=== PATIENT | female | born 1995 | race Caucasian/White ===

== ENCOUNTER 2025-02-08 16:20 | Emergency (ER) | payer BC, SELFPAY ==
[2025-02-08 16:22] VITALS: BP 118/80; PULSE 91; RESP 16; TEMP 36.8; O2SAT 98; BMI 32.5
[2025-02-08 16:42] VITALS: PULSE 90; RESP 18; O2SAT 98
--- NOTE | 2025-02-08 17:04 | XR_ITS ---
Examination: PA lateral chest 2 views TECHNIQUE: Upright PA and lateral chest 2 views Date and time: February 08, 2025 1718 hours INDICATION: Chest pain and shortness of the feeding tube reaches ago. FINDINGS: Subsegmental atelectasis right base No will lobar pneumonia No pulmonary edema The osseous structures are intact IMPRESSION: Subsegmental atelectasis right base No pneumonia or pulmonary edema
--- NOTE | 2025-02-08 17:04 | EKG_ITS ---
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
--- NOTE | 2025-02-08 17:04 | PD.EDRME ---
Rapid Medical Screening Exam RME Arrival date/time: 02/08/25 16:20 29-year-old female presents to the emergency department today for complaints of chest pain and upper abdominal pain while eating today 2 hours ago Vital signs: Vital Signs Temperature 98.3 F 02/08/25 16:22 Pulse Rate 91 02/08/25 16:22 Respiratory Rate 16 02/08/25 16:22 Blood Pressure 118/80 02/08/25 16:22 Pulse Oximetry (%) 98 02/08/25 16:22 Oxygen Delivery Method Room Air 02/08/25 16:22
[2025-02-08 17:43] LABS: Basophils # (Auto) 0.1 Thou/mm3 (0.0-0.2); Basophils % (Auto) 1 % (0-2.5); Eosinophils # (Auto) 0.2 Thou/mm3 (0.0-0.5); Eosinophils % (Auto) 1 % (0-10); Hematocrit 37.7 % (36.0-46.0); Hemoglobin 12.9 g/dL (12.0-16.0); Immature Granulocytes % (Auto) 0 % (0-0); Immature Granulocytes Auto 0.03 Thou/mm3 (0.00-0.00); Lymphocytes # (Auto) 1.5 Thou/mm3 (1.0-4.8); Lymphocytes % (Auto) 13 % (10-50); Mean Corpuscular HGB Conc 34.2 g/dl (31.0-37.0); Mean Corpuscular Hemoglobin 27.5 pg (25.0-35.0); Mean Corpuscular Volume 80 fL (80-100); Monocytes # (Auto) 0.7 Thou/mm3 (0.0-0.8); Monocytes % (Auto) 6 % (0-12); Neutrophils # (Auto) 9.5 Thou/mm3 (1.8-7.7); Neutrophils % (Auto) 79 % (37-80); Nucleated Red Blood Cell % 0 /100 WBC (0); Platelet Count 379 Thou/mm3 (140-440); RDW Standard Deviation 39.6 fL (36.4-46.3); Red Blood Count 4.69 Miln/mm3 (4.00-5.20)
[2025-02-08 17:47] LABS: Collection Type, Urine Clean Catch
[2025-02-08 18:03] LABS: HCG Qualitative,Urine Negative
[2025-02-08 18:08] LABS: Bilirubin,Urine Negative (Negative); Blood,Urine Negative (Negative); Clarity,Urine Clear (Clear/Hazy); Color,Urine Yellow (Lt Yel-Yel); Culture Indicated,Urine Not Indicated; Glucose, Urine Negative (Negative); Ketones,Urine Negative (Negative); Leukocyte Esterase,Urine Negative (Negative); Nitrite,Urine Negative (Negative); Protein,Urine Trace (Neg - Trace); Specific Gravity,Urine 1.029 (1.001-1.035)
[2025-02-08 18:21] LABS: Alanine Aminotransferase 59 U/L (10-49); Albumin, Serum 4.8 gm/dL (3.5-5.0); Albumin/Globulin Ratio 1.7 (1.2-2.2); Alkaline Phosphatase 100 U/L (46-116); Anion Gap 6 (7-16); Aspartate Amino Transferase 88 U/L (0-34); BUN/Creatinine Ratio 10 Ratio (12-20); Bilirubin,Total 1.2 mg/dL (0.3-1.2); Blood Urea Nitrogen 8 mg/dL (9-23); Calcium 9.4 mg/dL (8.3-10.6); Calcium (Corrected) 9.4 mg/dL (8.5-10.1); Chloride 104 mMol/L (98-107); Creatinine (Component) 0.8 mg/dL (0.6-1.3); Estimated Creatinine Clearance 110.2 mL/min (>60); Globulin 2.8 gm/dL (2.3-3.5); Glucose 111 mg/dL (74-106); Lipase 39 U/L (12-53); Osmolality,Calculated 273 (275-295); Potassium 3.9 mMol/L (3.4-5.1); Sodium 137 mMol/L (136-145); Total Protein 7.6 gm/dL (5.7-8.2); Troponin I < 0.002 ng/mL (0.0-0.045); eGFR > 60 See Note
[2025-02-08 18:38] LABS: RBC,Urine 2 /hpf (0-3)
[2025-02-08 18:39] LABS: Squamous Epithelial Cell,Urine 10 /hpf (0-5); WBC,Urine 3 /hpf (0-5)
--- NOTE | 2025-02-08 20:12 | EDNOTE_ITS ---
ED General RME/HPI General Stated complaint: CHEST WALL PAIN Time Seen by Provider: 02/08/25 19:39 Arrival date/time: 02/08/25 16:20 RME / HPI RME / HPI narrative: 29-year-old female presents to the emergency department today for complaints of chest pain and upper abdominal pain while eating today 2 hours ago. Described as burning-like sensation, severity moderate. Patient's been taking a lot of Tylenol Motrin due to migraine headache. Has been having migraine headache every day for the last 1 year denies any cough denies any fever denies any shortness of breath denies any other complaints. Related Data Previous Rx's ?Medication ?Instructions ?Recorded sodium chloride 0.65 % nasal spray 2 spray intranasal QID #45 mL 02/06/23 aerosol (Saline Mist) pantoprazole 40 mg tablet,delayed 40 mg PO QDAY #30 ta bs 02/08/25 release (Protonix) rizatriptan 10 mg disintegrating 10 mg PO Q2H PRN migr roxane headache 02/08/25 tablet (Maxalt-S[employer]USTOMER RELATIONS REP) #30 tabs Allergies Allergy/AdvReac Type Severity Reaction Status Date / Time No Known Allergies Allergy Verified 02/08/25 16:46 Review of Systems Review of Systems Narrative Review of Systems: Review of system reviewed and within normal limits except mentioned in HPI ED Exam Narrative Physical exam: VITAL SIGNS: Reviewed. GENERAL APPEARANCE: Alert and interactive, follows commands, no acute distress, HEAD AND FACE: Non-traumatic. ENT: PERRL, pink conjunctivitis, eyelid no trauma, Mucous membrane moist. NECK: Supple, nontender, no nuchal rigidity. CHEST: No tenderness, no crepitus, no paradoxical movement, no retractions. LUNGS: Clear, well ventilated, symmetric, no rales, no wheezing, no ronchi, no stridor, good breath sounds bilaterally. HEART: Regular rate, regular rhythm, no murmur, no gallops. ABDOMEN: Soft, positive bowel sounds, nondistended, no guarding, nontender, no rebound, no masses, RECTAL: Deferred. GENITAL: Deferred. NEUROLOGICAL: Gross motor function intact sensory function intact, Appropriate for age. MUSCULOSKELETAL: low back nontender, full range of motion. EXTREMITIES: Nontender, full range of motion. SKIN: Color pink, dry, no rash, no lacerations, no abrasions, no contusions. LYMPHATICS: Deferred. Course Quality Measures none Orders Category Date Time Status EKG (ED ONLY) *Do not use* NOW Care 02/08/25 17:04 Completed EKG (ED Only) Stat Exams 02/08/25 17:04 Draft XR chest 2V Stat Exams 02/08/25 17:04 Completed CBC Stat Lab 02/08/25 17:26 Completed Comprehensive Metabolic Panel Stat Lab 02/08/25 17:26 Completed HCG Qualitative,Urine Stat Lab 02/08/25 17:42 Completed Lipase Stat Lab 02/08/25 17:26 Completed Troponin I Stat Lab 02/08/25 17:26 Completed UA, C/S IF [Urinalysis, C/S if Indicated] Stat Lab 02/08/25 17:42 Completed Vital Signs Vital signs: Vital Signs Temperature 98.3 F 02/08/25 16:22 Pulse Rate 91 02/08/25 16:22 Respiratory Rate 16 02/08/25 16:22 Blood Pressure 118/80 02/08/25 16:22 Pulse Oximetry (%) 98 02/08/25 16:22 Oxygen Delivery Method Room Air 02/08/25 16:22 Discharge Plan Plan Patient Disposition: HOME (Self Care) Discharge Disposition comment: Stable Prescriptions/Referrals Prescriptions/Med Rec: New pantoprazole [Protonix] 40 mg tablet,delayed release (DR/EC) 40 mg PO QDAY Qty: 30 0RF rizatriptan [Maxalt-SALES [employer] CUSTOMER RELATIONS REP] 10 mg tablet,disintegrating 10 mg PO Q2H PRN (Reason: migraine headache) Qty: 30 0RF Rx Instructions: do not exceed 3 doses per 24 hrs No Action Saline Mist 0.65 % aerosol,spray 2 spray intranasal QID Qty: 45 0RF Referrals: Noel Lakhain PA-C [Primary Care Provider] - In 1 week Problem List Clinical Impression: GERD (gastroesophageal reflux disease), Hx of migraine headaches Patient/Caregiver Discharge Instructions Education Materials: ED GERD (Adult) Additional Instructions: Thank you for the opportunity for serving you today. You are stable for discharged . You are advised to: Follow-up with your PCP in 1 to 2 days Return to ED for worsening of symptoms Increase oral fluids Take medication as prescribed Print Language: Lebanese Stand Alone Forms: Delilah Award Info., Patient Portal Info Letter ROCIO/SPENCER Supervising Physician ROCIO/SPENCER Supervising Physician: MD Mert MDM Narrative MDM hospital course (for use when minimal MDM required): 29-year-old female presents to the emergency department today for complaints of chest pain and upper abdominal pain while eating today 2 hours ago. Described as burning-like sensation, severity moderate. Patient's been taking a lot of Tylenol Motrin due to migraine headache. Has been having migraine headache every day for the last 1 year denies any cough denies any fever denies any shortness of breath denies any other complaints. Patient's cardiac workup today all came back unremarkable including normal chest x-ray. Troponin is normal EKG showed normal sinus rhythm, ventricular rate of 88 bpm, no ST segment ovation depression noted Patient's symptoms could be secondary to GERD due to taking a lot of Tylenol and Motrin secondary to migraine headache. Patient will be sent home on Protonix and Maxalt for migraine headache. Diagnosis Differential Diagnosis ED Complaint MDM: Chest pain, GERD, gastritis Diagnoses ruled out and/or further discussions: GERD, migraine
[2025-02-08 20:27] VITALS: RESP 18
== END 2025-02-08 20:28 | disposition home or self-care (01) ==
PROVIDERS: Nurse Practitioner Primary Care; Emergency Provider Emergency Medicine; PCP Physician Assistant
DX: K21.9 Gastro-esophageal reflux disease without esophagitis (principal); G43.909 Migraine, unspecified, not intractable, without status migrainosus; R07.89 Other chest pain; R06.02 Shortness of breath; R94.31 Abnormal electrocardiogram [ECG] [EKG]
CPT/HCPCS: 36415; 71046; 80053; 81001; 81025; 83690; 84484; 85025; 93005; 99283

== ENCOUNTER → 2025-06-27 | Outpatient (CLI) | payer BC, SELFPAY ==
--- NOTE | 2025-06-27 16:55 | XR_ITS ---
Examination: CT brain head without contrast. 2-D sagittal coronal reconstructions Date and time of exam:June 27, 2025, 1700 hrs. Indications: Headaches one year, history intracranial bleed 3 years ago CTDI: vol (mGy):53.2 DLP: (mGycm):1184 Technique: Multiple CT axial sections of the brain have been obtained, 5 mm slice thickness. Contrast has not been administered. 2-D sagittal, coronal reconstructions have been obtained Low dose protocols were performed. One or more of the following dose reduction techniques were used; automated exposure control, adjustment of the mA and/or KV according to patient size, use of iterative reconstruction technique. Findings: No significant ventricular enlargement. Poorly defined soft tissue calcified mass at the right sphenoid ridge, adjacent to the right temporal lobe tip, axial image 28, coronal image 21, measuring 19 x 20 mm Intra-axial or extra-axial hemorrhage density is not seen. No mass effect or midline shift Basal cisterns are not remarkable. Fourth ventricle is midline. Cranial vault intact. 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
== END | disposition home or self-care (01) ==
LOC: SCAT 16:48
PROVIDERS: PCP Physician Assistant; Referring Provider Nurse Practitioner Family; Visit Provider Nurse Practitioner Family
DX: R51.9 Headache, unspecified (principal); Z87.820 Personal history of traumatic brain injury; S02.32XS Fracture of orbital floor, left side, sequela; X58.XXXS Exposure to other specified factors, sequela
CPT/HCPCS: 70450

== ENCOUNTER 2025-07-29 16:33 | Emergency (ER) | payer BC, SELFPAY ==
[2025-07-29 16:49] VITALS: BP 127/91; PULSE 82; RESP 16; TEMP 36.7; O2SAT 97; BMI 32.4
--- NOTE | 2025-07-29 16:57 | EDRME_ITS ---
Rapid Medical Screening Exam [facility] Arrival date/time: 07/29/25 16:33 This is a case of 29-year-old female came in in the emergency room due to worsening headache with dizziness fatigue blurring of vision nausea for [address] scan on the 2 weeks ago and noted to have brain mass patient have history of brain bleed twice in 2018 denies any numbness weakness but with tingling sensation on the toes Chief Complaint: Headache Time Seen by Provider: 07/29/25 16:40 Vital signs: Vital Signs Temperature 98.1 F 07/29/25 16:49 Pulse Rate 82 07/29/25 16:49 Respiratory Rate 16 07/29/25 16:49 Blood Pressure 127/91 H 07/29/25 16:49 Pulse Oximetry (%) 97 07/29/25 16:49 Oxygen Delivery Method Room Air 07/29/25 16:49 Exam: Neurological exam is normal awake alert oriented x 4 no focal deficit GCS 15/15 steady gait Clinical Impression: Headache
--- NOTE | 2025-07-29 16:57 | EKG_ITS ---
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
[2025-07-29 17:25] LABS: Basophils # (Auto) 0.0 Thou/mm3 (0.0-0.2); Basophils % (Auto) 1 % (0-2.5); Eosinophils # (Auto) 0.2 Thou/mm3 (0.0-0.5); Eosinophils % (Auto) 3 % (0-10); Hematocrit 38.1 % (36.0-46.0); Hemoglobin 12.9 g/dL (12.0-16.0); Immature Granulocytes Auto 0.02 Thou/mm3 (0.00-0.00); Lymphocytes # (Auto) 2.0 Thou/mm3 (1.0-4.8); Lymphocytes % (Auto) 25 % (10-50); Mean Corpuscular HGB Conc 33.9 g/dl (31.0-37.0); Mean Corpuscular Hemoglobin 28.2 pg (25.0-35.0); Mean Corpuscular Volume 83 fL (80-100); Monocytes # (Auto) 0.4 Thou/mm3 (0.0-0.8); Monocytes % (Auto) 6 % (0-12); Neutrophils # (Auto) 5.2 Thou/mm3 (1.8-7.7); Neutrophils % (Auto) 66 % (37-80); Nucleated Red Blood Cell # 0.00 Thou/mm3 (0.00-0.00); Nucleated Red Blood Cell % 0 /100 WBC (0); Platelet Count 340 Thou/mm3 (140-440); RDW Standard Deviation 38.4 fL (36.4-46.3); Red Blood Count 4.58 Miln/mm3 (4.00-5.20); White Blood Count 7.9 Thou/mm3 (3.6-11.0)
--- NOTE | 2025-07-29 17:35 | EDNOTE_ITS ---
<Statement entered by Zohreh Kowalski MD - 07/31/25 16:16> As co-signing physician, I was present and available for consult prn. I concur with the plan and care as documented by the midlevel provider. ED General RME/HPI General Chief complaint: Headache Stated complaint: SEVERE HEADACHE Time Seen by Provider: 07/29/25 16:40 Arrival date/time: 07/29/25 16:33 CC: Headache HPI headache with light sensitivity noise sensitivity no vomiting onset hour and a half ago. History of hide X every day. Takes Maxalt without relief today. Recently had a CT (06/30/25) which showed a possible meningioma. Patient took no medications today. No active vomiting or nausea today. Patient is sexually not active. Denies fever chest pain shortness of breath or difficulty breathing. RME / HPI RME / HPI narrative: 07/29/25 16:33 This is a case of 29-year-old female came in in the emergency room due to worsening headache with dizziness fatigue blurring of vision nausea for [address] scan on the 2 weeks ago and noted to have brain mass patient have history of brain bleed twice in 2018 denies any numbness weakness but with tingling sensation on the toes Exam: Neurological exam is normal awake alert oriented x 4 no focal deficit GCS 15/15 steady gait Impression: Headache Related Data Previous Rx's ?Medication ?Instructions ?Recorded sodium chloride 0.65 % nasal spray 2 spray intranasal QID #45 mL 02/06/23 aerosol (Saline Mist) pantoprazole 40 mg tablet,delayed 40 mg PO QDAY #30 ta bs 02/08/25 release (Protonix) rizatriptan 10 mg disintegrating 10 mg PO Q2H PRN migr roxane headache 02/08/25 tablet (Maxalt-SCHOOL SPEECH LANGUAGE PATHOLOGIST) #30 tabs Allergies Allergy/AdvReac Type Severity Reaction Status Date / Time No Known Allergies Allergy Verified 07/29/25 16:36 Review of Systems Review of Systems Narrative Review of Systems: GEN: No fever, no chills, no weight loss EYES: No discharge, no visual changes, no pain HEENT: No ear pain, no congestion, no sore throat PULM: No shortness of breath, no cough, no congestion CV: No chest pain, no dyspnea on exertion, no palpitations GI: No nausea, no vomiting, no diarrhea, no pain, no constipation : No frequency, no urgency, no dysuria MUSC/SKEL: No joint pain, no back pain SKIN: No rash PSYCH: No hallucinations, no depression HEME/LYMPH: No easy bleeding or bruising tendencies NEURO: No weakness, +headache Past Medical History Social History SMOKING STATUS: Never smoker ED Exam Narrative Physical exam: [General: Obese not in in moderate discomfort but not in any acute distress Head normocephalic HEENT: Eyes pupils are PERRLA EOMs are intact mouth pink moist membranes uvula is midline swallow symmetrical phonation is normal all other subsystems of HEENT are within acceptable limits Neck is supple nontender Chest equal chest rise nontender to palpation Respiratory: Clear to auscultation no wheezes crackles or rubs CV: Rate rhythm is regular no murmurs rubs or clicks Abdomen is distended secondary to body habitus soft nontender no masses positive bowel sounds all 4 quadrants Back: No CVA tenderness no spinous process tenderness from cervical spine thoracic and lumbar spine Skin: Intact no petechiae rash induration ulceration or crepitus Extremities: Moving all extremity against resistance cap refill less than 2 seconds neurosensory intact Neuro: Awake alert oriented x3 Glascow coma 15 no focal deficits] Course Course Course Narrative: At 1830, the patient states she is declining an additional CT of the head as a CT of the head was done June 30, 2025. The patient needs an MRI. Patient has declined the CT and is waiting for outpatient referral for MRI. At 1854, the patient states headache is now completely resolved. Quality Measures none Orders Category Date Time Status CT Screening NOW Care 07/29/25 16:56 Completed EKG (ED ONLY) *Do not use* NOW Care 07/29/25 16:57 Completed EKG (ED Only) Stat Exams 07/29/25 16:57 Draft CBC Stat Lab 07/29/25 17:12 Completed CMP [Comprehensive Metabolic Panel] Stat Lab 07/29/25 17:12 Completed HCG,Qualitative Serum Stat Lab 07/29/25 17:12 Completed Troponin I Stat Lab 07/29/25 17:12 Completed Urinalysis Stat Lab 07/29/25 18:45 Completed DiphenhydrAMINE INJ [Benadryl Inj] Med 07/29/25 17:32 Discontinued 50 mg IM X1 ONE Ketorolac Inj [Toradol Inj] Med 07/29/25 17:32 Discontinued 30 mg IM X1 ONE Prochlorperazine Inj [Compazine Inj] Med 07/29/25 17:32 Discontinued 10 mg IM X1 ONE Vital Signs Vital signs: Vital Signs Temperature 98.1 F 07/29/25 16:49 Pulse Rate 82 07/29/25 16:49 Respiratory Rate 16 07/29/25 16:49 Blood Pressure 127/91 H 07/29/25 16:49 Pulse Oximetry (%) 97 07/29/25 16:49 Oxygen Delivery Method Room Air 07/29/25 16:49 Discharge Plan Plan Patient Disposition: HOME (Self Care) Patient condition on transfer: Stable Prescriptions/Referrals Prescriptions/Med Rec: No Action Saline Mist 0.65 % aerosol,spray 2 spray intranasal QID Qty: 45 0RF pantoprazole [Protonix] 40 mg tablet,delayed release (DR/EC) 40 mg PO QDAY Qty: 30 0RF rizatriptan [Maxalt-SCHOOL SPEECH LANGUAGE PATHOLOGIST] 10 mg tablet,disintegrating 10 mg PO Q2H PRN (Reason: migraine headache) Qty: 30 0RF Rx Instructions: do not exceed 3 doses per 24 hrs Referrals: No Primary/Family,Physician [Primary Care Provider] - In 1 week Problem List Clinical Impression: Migraine, Meningioma Patient/Caregiver Discharge Instructions Education Materials: ED Headache, Migraine, Classic Additional Instructions: You are suspected to have a meningioma, please get an outpatient referral for MRI for further deal till look. If there is a repeat occurrence of the headache in spite of the medications at home return to the emergency room for reevaluation. Otherwise follow-up with your primary care. Print Language: Ukrainian Stand Alone Forms: Delilah Award Info., Work/School Release, Patient Portal Info Letter PA/APPAREL MANUFACTURE INSTRUCTOR Supervising Physician PA/APPAREL MANUFACTURE INSTRUCTOR Supervising Physician: Allen Dsouza ENP [facility] Clinical Information Provided by: patient Medical Records reviewed [facility] Meds/Rx considered, not ordered None Labs/Rad/Tests considered, not ordered None Chronic Illness/Social Conditions Explain: Chronic headaches EKG Interpretation EKG #1: EKG Interpretation: EKG performed at 1847 shows a ventricular rate of 79 MD interval 170 QRS of 9 0 QTc of 431 is sinus rhythm. Labs Labs: interpreted by ma Lab(s) Interpretation(s): CBC shows no acute leukocytosis anemia thrombocytopenia Medication Administration(s) Medication Administration History Discontinued Medications Diphenhydramine HCl (Diphenhydramine Inj 50 Mg/Ml Vial) 50 mg IM X1 ONE Stop: 07/29/25 17:33 Last Admin: 07/29/25 18:11 Dose: 50 mg Documented By: BY Ketorolac Tromethamine (Ketorolac Inj 30 Mg/Ml Vial) 30 mg IM X1 ONE Stop: 07/29/25 17:33 Last Admin: 07/29/25 18:11 Dose: 30 mg Documented By: BY Prochlorperazine Edisylate (Prochlorperazine Inj 5 Mg/Ml Vial 2 Ml) 10 mg IM X1 ONE; Protocol Stop: 07/29/25 17:33 Last Admin: 07/29/25 18:10 Dose: 10 mg Documented By: BY
[2025-07-29 17:39] LABS: HCG,Qualitative Serum Negative
[2025-07-29 17:47] LABS: Alanine Aminotransferase 25 U/L (10-49); Albumin, Serum 4.6 gm/dL (3.5-5.0); Albumin/Globulin Ratio 1.9 (1.2-2.2); Alkaline Phosphatase 84 U/L (46-116); Anion Gap 11 (7-16); Aspartate Amino Transferase 15 U/L (0-34); BUN/Creatinine Ratio 6 Ratio (12-20); Bilirubin,Total 0.9 mg/dL (0.3-1.2); Blood Urea Nitrogen 5 mg/dL (9-23); Calcium 8.7 mg/dL (8.3-10.6); Calcium (Corrected) 8.7 mg/dL (8.5-10.1); Carbon Dioxide 26.4 mMol/L (20.0-31.0); Chloride 104 mMol/L (98-107); Creatinine (Component) 0.8 mg/dL (0.6-1.3); Estimated Creatinine Clearance 109.9 mL/min (>60); Globulin 2.4 gm/dL (2.3-3.5); Glucose 123 mg/dL (74-106); Osmolality,Calculated 279 (275-295); Potassium 3.4 mMol/L (3.4-5.1); Sodium 141 mMol/L (136-145); Total Protein 7.0 gm/dL (5.7-8.2); Troponin I < 0.002 ng/mL (0.0-0.045); eGFR > 60 See Note
[2025-07-29] MEDS: PROCHLORPERAZINE INJ 5 MG/ML VIAL 2 ML 10 MG IM (18:10)
[2025-07-29] MEDS: KETOROLAC INJ 30 MG/ML VIAL IM (18:11)
[2025-07-29 18:52] VITALS: BP 124/86; PULSE 86; RESP 16; O2SAT 97
[2025-07-29 19:05] LABS: Collection Type, Urine Voided
[2025-07-29 19:14] LABS: Amorphous Crystals,Urine Present (Absent); Bacteria,Urine Rare; Bilirubin,Urine Negative (Negative); Blood,Urine Negative (Negative); Clarity,Urine Turbid (Clear/Hazy); Color,Urine Yellow (Lt Yel-Yel); Glucose, Urine Negative (Negative); Ketones,Urine Negative (Negative); Leukocyte Esterase,Urine Positive (Negative); Nitrite,Urine Negative (Negative); PH,Urine 6.5 (5.0-7.0); Protein,Urine Trace (Neg - Trace); RBC,Urine 4 /hpf (0-3); Specific Gravity,Urine 1.030 (1.001-1.035); Squamous Epithelial Cell,Urine 7 /hpf (0-5); Urobilinogen,Urine 4.0 mg/dL (0.0-1.0); WBC,Urine 3 /hpf (0-5)
[2025-07-29 19:17] VITALS: BP 124/85; RESP 18
== END 2025-07-29 19:19 | disposition home or self-care (01) ==
PROVIDERS: Nurse Practitioner Family; Emergency Provider Emergency Medicine
DX: G43.909 Migraine, unspecified, not intractable, without status migrainosus (principal); D32.9 Benign neoplasm of meninges, unspecified
CPT/HCPCS: 36415; 80053; 81001; 84484; 84703; 85025; 93005; 96372; 99283; J0780; J1200; J1885

== ENCOUNTER 2025-07-30 09:40 | Emergency (ER) | payer BC, SELFPAY ==
--- NOTE | 2025-07-30 | XR_ITS ---
Examination: MRI of brain without intravenous contrast. MRI brain with intravenous contrast. INDICATION: Headache for 1 year. History of intracranial bleed 3 years ago. Date and time of exam: 07/30/2025, 10:48 a.m. COMPARISON: Head CT 81. Technique: Multiple axial and sagittal images of the brain to been obtained. Siemens high-resolution 1.52 Toyin short bore scanner utilized. Sagittal sections, T1 weighted images, TR 500, TE 14, are performed. Axial sections proton-density and T2-weighted images have been obtained. Inversion recovery axial images, TR 9260, TE 111, TR 2500. Diffusion weighted images, axial sections, TR 4800, TE 128, B value 1000. Axial sections, ADC map, TR 4800, TE 128. Axial and coronal images were also obtained post 17 cc gadolinium (MultiHance) administered intravenously. Findings: A well-circumscribed heterogeneous lesion is present along the right sphenoid ridge, correlate with heterogeneous dense partially calcified mass on previous head CT. It demonstrates a thin low signal/hemosiderin ring on T2-weighted imaging, and more diffuse signal dropout on SWI. It demonstrates heterogeneous T2 hyperintense signal on T2, mildly heterogeneous but predominantly intermediate T1 signal with small foci of low signal and high signal, and exhibits heterogeneous somewhat stippled postcontrast enhancement. The lesion measures approximately 2.2 x 1.5 cm in transaxial dimensions by 1.9 cm in craniocaudal dimension. It is intra-axial, located in the inferolateral right frontal lobe, and demonstrates very small adjacent parenchymal vessels. 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 There is no associated broad-based enhancing dural tail to definitively indicate that this is a meningioma. Elsewhere, the brain appears normal for age. No significant white matter disease. No atrophy. No evidence for recent ischemic infarction or infection. No midline shift or hydrocephalus. No Chiari I malformation. The calvarium is intact and unremarkable. The paranasal sinuses show no masses or fluid levels. However, there is a chronic low-lying left orbital floor fracture protruding into the left maxillary sinus, more so along the peripheral aspect. Scalp is unremarkable. Impression: Intra-axial lesion adjacent to the right sphenoid ridge and localizing to the inferolateral right frontal lobe is most compatible with a cavernoma. No evidence for acute hemorrhage or cerebral edema. No evidence of a recent ischemic infarction. No midline shift or hydrocephalus. In the absence of clinical symptoms, a follow-up contrast-enhanced brain MRI can be obtained in 6 to 12 months to ensure stability.
--- NOTE | 2025-07-30 09:53 | PD.EDRME ---
Rapid Medical Screening Exam RME Arrival date/time: 07/30/25 09:40 29-year-old female presents to the Emergency Department today for complaints of headache patient was evaluated yesterday here in the emergency department I was instructed to return if her symptoms persist Chief Complaint: Headache Time Seen by Provider: 07/30/25 09:48 Vital signs reviewed by provider: Yes Exam: On exam patient well-appearing patient does not appear ill or toxic no acute distress Clinically patient well-appearing Clinical Impression: Imaging ordered
[2025-07-30 09:58] VITALS: BP 131/87; PULSE 93; RESP 16; TEMP 37.1; O2SAT 97
[2025-07-30 10:03] VITALS: BMI 32.4
--- NOTE | 2025-07-30 12:29 | EDNOTE_ITS ---
<Statement entered by Zohreh Kowalski MD - 07/31/25 09:36> As co-signing physician, I was present and available for consult prn. I concur with the plan and care as documented by the midlevel provider. ED Headache RME/HPI General Chief Complaint: Headache Stated Complaint: RETURNED FOR MRI; SEVERE HEADACHES Time Seen by Provider: 07/30/25 09:48 Arrival date/time: 07/30/25 09:40 29-year-old female presents emergency department today with complaints of headache. Patient reports she was told to come back today for MRI if her symptoms persist patient ports that she is been having headaches for the last year daily. Patient was found to have abnormality on CT scan yesterday Limitations: no limitations RME / HPI RME / HPI Narrative: 07/30/25 09:40 29-year-old female presents to the Emergency Department today for complaints of headache patient was evaluated yesterday here in the emergency department I was instructed to return if her symptoms persist Exam: On exam patient well-appearing patient does not appear ill or toxic no acute distress Clinically patient well-appearing Impression: Imaging ordered Related Data Previous Rx's ?Medication ?Instructions ?Recorded sodium chloride 0.65 % nasal spray 2 spray intranasal QID #45 mL 02/06/23 aerosol (Saline Mist) pantoprazole 40 mg tablet,delayed 40 mg PO QDAY #30 ta bs 02/08/25 release (Protonix) rizatriptan 10 mg disintegrating 10 mg PO Q2H PRN migr roxane headache 02/08/25 tablet (Maxalt-[employer]) #30 tabs Allergies Allergy/AdvReac Type Severity Reaction Status Date / Time No Known Allergies Allergy Verified 07/30/25 09:43 Review of Systems Review of Systems Systems Reviewed: All systems reviewed, normal except as documented Constitutional Constitutional: Reports system reviewed and no additional complaints, except as documented, Denies fever(s) and Reports headache(s) Eyes Eyes: Reports system reviewed and no additional complaints, except as documented and Denies blurry vision ENT Ears, Nose, Mouth, and Throat: Reports system reviewed and no additional complaints, except as documented, Reports headache(s), Denies nasal congestion and Denies nasal discharge Cardiovascular Cardiovascular: Reports system reviewed and no additional complaints, except as documented, Denies chest pain and Denies dyspnea Respiratory Respiratory: Reports system reviewed and no additional complaints, except as documented, Denies chest congestion, Denies cough and Denies dyspnea Gastrointestinal Gastrointestinal: Reports system reviewed and no additional complaints, except as documented and Denies abdominal pain Integumentary/Breasts Skin/Breast: Reports system reviewed and no additional complaints, except as documented and Denies rash Neurologic Neurologic: Reports system reviewed and no additional complaints, except as documented, Reports as per HPI and Reports headache(s) Past Medical History Past Medical History CARDIAC: Negative Cardiac Disorders or Congestive Heart Failure RESPIRATORY: Negative Respiratory Disorders, Chronic Obstructive Pulmonary Disease (COPD) or Asthma GENITOURINARY: Negative Renal Disease ENDOCRINE: Positive Diabetes Mellitus Type 2; Negative Diabetes Mellitus Type 1 HEMATOLOGIC: Negative Sickle Cell Disease Social History SMOKING STATUS: Never smoker ED Exam General Limitations: Present no limitations General appearance: Present alert and in no apparent distress Head Head exam: Present atraumatic, normocephalic and normal inspection Eye Eye exam: Present normal appearance, PERRL and EOMI; Absent conjunctival injection ENT ENT exam: Present normal exam, normal oropharynx and mucous membranes moist Neck Neck exam: Present normal inspection, full ROM and trachea midline Chest Chest inspection: Present normal inspection and symmetric chest wall rise Respiratory Respiratory exam: Present normal lung sounds bilaterally Cardiovascular Cardiovascular exam: Present regular rate, normal rhythm and normal heart sounds Abdominal Exam Abdominal exam: Present soft and normal bowel sounds Extremities Exam Extremities exam: Present normal inspection and full ROM Back Exam Back exam: Present normal inspection and full ROM Neurological Exam Neurological exam: Present alert, oriented X3, CN II-XII intact, normal gait and reflexes normal; Absent motor sensory deficit Psychiatric Psychiatric exam: Present normal affect and normal mood Skin Skin exam: Present warm, dry, intact and normal color Course Quality Measures none Orders Category Date Time Status Insert IV NOW Care 07/30/25 09:52 Completed MRI Screening NOW Care 07/30/25 09:52 Completed Consult to Neurology / Tele-Neurology Stat Cons 07/30/25 12:28 Active MR head/brain wo/w con Stat Exams 07/30/25 Completed Vital Signs Vital signs: Vital Signs Temperature 98.7 F 07/30/25 09:58 Pulse Rate 93 07/30/25 09:58 Respiratory Rate 16 07/30/25 09:58 Blood Pressure 131/87 H 07/30/25 09:58 Pulse Oximetry (%) 97 07/30/25 09:58 Oxygen Delivery Method Room Air 07/30/25 09:58 O2 saturation 97% room air within normal limits Headache MDM Narrative MDM Narrative:: 29-year-old female presents emergency department today with complaints of headache. Patient reports she was told to come back today for MRI if her symptoms persist patient ports that she is been having headaches for the last year daily. Patient was found to have abnormality on CT scan yesterday On exam patient well-appearing patient does not appear toxic distress Imaging obtained/MRI with and without contrast. I reviewed the patient's MRI per radiologist patient has cavernoma Consultation: I spoke with Dr. Slade who reviewed images she saw the patient and states she will follow-up with the patient in her office on Patient data External records reviewed:: [facility] previous records Clinical information provided by:: patient Social determinants that could affect healthcare access:: none Patient has the following chronic illnesses:: None How is presenting disease/condition affected by chronic disease/condition?: no chronic disease Evaluation data The following diagnostics were reviewed and interpreted by me:: radiology exam(s) Lab and/or radiology exams considered but not ordered:: Radiology obtain Interpretation Summary: Reviewed by me Medications / Prescriptions Medications or Prescriptions considered but not ordered:: No meds Medication administrations:: No meds Consultations Consultation(s) initiated? (list below): Yes Consultation #1 (Physician, Specialty, Details): Dr Slade neurologist Diagnosis Differential diagnosis headache: migraine, tension headache and subarachnoid hemorrhage Most likely diagnosis given after review of the tests above:: Cavernoma Admission Indicated Admission indicated?: not indicated Admission Request Was there a request for admission?: No Disposition Plan Disposition Plan: Discharge Discharge Attestation Discharge Attestation: The patient and all family members were given an opportunity to ask questions and understood the discharge instructions. Discharge instructions specifically effects, indications for sooner follow up or return to the emergency department, and the expected course of current diagnosis. Patient condition: Stable Discharge Plan Plan Patient Disposition: HOME (Self Care) Discharge Disposition comment: Stable Prescriptions/Referrals Prescriptions/Med Rec: No Action Saline Mist 0.65 % aerosol,spray 2 spray intranasal QID Qty: 45 0RF pantoprazole [Protonix] 40 mg tablet,delayed release (DR/EC) 40 mg PO QDAY Qty: 30 0RF rizatriptan [Maxalt-[employer]] 10 mg tablet,disintegrating 10 mg PO Q2H PRN (Reason: migraine headache) Qty: 30 0RF Rx Instructions: do not exceed 3 doses per 24 hrs Referrals: Antonio Slade MD [Physician, Neurology] - 08/01/25 Noel Lakhani PA-C [Primary Care Provider] - In 1 week Problem List Clinical Impression: Cerebral cavernoma Patient/Caregiver Discharge Instructions Additional Instructions: Please follow-up with neurologist Dr Slade as discussed for worsening symptoms return immediately Print Language: Mongolian Stand Alone Forms: Delilah Award Info., Patient Portal Info Letter PA/RN REFERRAL Supervising Physician PA/RN REFERRAL Supervising Physician: dr kowalski
--- NOTE | 2025-07-30 13:24 | ESCONSULT_ITS ---
History of Present Illness Data of Consult Primary Care Provider: Noel Lakhani PA-C Consult Narrative History of present illness: Patient is a 29-year-old female with a chronic migraine and acid reflux presented with the persistent worsening headache in the last 11 months. Not associated with nausea, vomiting/phonophobia or photophobia. Workup: CT head showed findings consistent with a cerebral meningioma. Neurology was consulted to evaluate further. cc:: cc: Review of Systems Review of Systems Systems Reviewed: All systems reviewed, normal except as documented Past Medical History Past Medical History CARDIAC: Negative Cardiac Disorders or Congestive Heart Failure RESPIRATORY: Negative Respiratory Disorders, Chronic Obstructive Pulmonary Disease (COPD) or Asthma GENITOURINARY: Negative Renal Disease ENDOCRINE: Positive Diabetes Mellitus Type 2; Negative Diabetes Mellitus Type 1 HEMATOLOGIC: Negative Sickle Cell Disease Social History SMOKING STATUS: Never smoker Meds Home Medications and Allergies Allergies Allergy/AdvReac Type Severity Reaction Status Date / Time No Known Allergies Allergy Verified 07/30/25 09:43 Exam - Neurology Vital Signs Temp Pulse Resp BP Pulse Ox O2 Del Method 98.7 F 93 16 131/87 H 97 Room Air 07/30/25 09:58 07/30/25 09:58 07/30/25 09:58 07/30/25 09:58 07/30/25 09:58 07/30/25 09:58 Assessment & Plan Assessment and plan (1) Cerebral cavernoma: Status: Acute Assessment and plan: MRI brain showed right temporal lobe cavernoma Will continue to watch her closely. Patient is stable from neurology standpoint for discharge and we will get her into see neuro oncologist/surgeon in in [facility] (2) Migraine: Status: Chronic Assessment and plan: Will start her on migraine preventative medication and abortive therapy upon see her in my office on . To cut down on NSAIDs to prevent medication overuse headache
== END 2025-07-30 13:43 | disposition home or self-care (01) ==
PROVIDERS: Emergency Provider Nurse Practitioner Primary Care; PCP Physician Assistant
DX: D32.0 Benign neoplasm of cerebral meninges (principal)
CPT/HCPCS: 70553; 99283; A9577